=== PATIENT | male | born 1975 | race Caucasian/White ===

== ENCOUNTER 2021-10-17 11:27 | Emergency (ER) | payer SELFPAY ==
[2021-10-17] VITALS (8 sets, daily range): BP systolic 106–127; BP diastolic 84–98
[~2021-10-17] VITALS: Ht 177.8 cm; Wt 63.0 kg
[~2021-10-17 11:27] MED LIST: CEPHALEXIN500 MG OR; LORTAB5 OR; NO HOME MEDS
== END 2021-10-17 13:30 | disposition home or self-care (01) | DRG 556 ==
LOC: ED 11:27
DX: M25.521 Pain in right elbow (principal); F17.210 Nicotine dependence, cigarettes, uncomplicated; W01.0XXA Fall on same level from slipping, tripping and stumbling without subsequent striking against object, initial encounter; Y93.K9 Activity, other involving animal care; Y92.009 Unspecified place in unspecified non-institutional (private) residence as the place of occurrence of the external cause

== ENCOUNTER 2021-10-21 10:57 | Emergency (ER) | payer SELFPAY ==
[2021-10-21] VITALS (7 sets, daily range): BP systolic 98–123; BP diastolic 74–89
[~2021-10-21] VITALS: Ht 177.8 cm; Wt 58.9 kg
== END 2021-10-21 14:45 | disposition home or self-care (01) | DRG 563 ==
LOC: ED 10:57
PROC: 2W3CX1Z Immobilization of Right Lower Arm using Splint (ICD-10-PCS; principal; 2021-10-21)
DX: S52.121A Displaced fracture of head of right radius, initial encounter for closed fracture (principal); F17.210 Nicotine dependence, cigarettes, uncomplicated; X58.XXXA Exposure to other specified factors, initial encounter